=== PATIENT | female | born 1955 | race Caucasian/White ===

== ENCOUNTER 2016-06-04 11:13 | Emergency (ER) | payer SELFPAY ==
[2016-06-04 11:37] VITALS: BP 163/61; PULSE 79; RESP 16; TEMP 97.9; O2SAT 96
--- NOTE | 2016-06-04 12:36 | UCPHY ---
H & P Time Seen by Provider: 06/04/16 11:35 Patient Type: Established HPI/ROS: 60-year-old female presents complaining of swelling of her hands secondary to her rheumatoid arthritis, a flare. She is visiting from the . She is not currently on prednisone. She denies fevers or chills. Review of systems As per HPI General no fever no chills no weakness HEENT no eye pain no eye discharge. No eye redness, no sore throat Respiratory no cough, no shortness of breath Cardiac no chest pain, no peripheral edema GI no abdominal pain, no diarrhea, no constipation, no nausea, no vomiting no flank pain, no hematuria, no dysuria Musculoskeletal no myalgias, positive joint pain Heme no easy bruising, no easy bleeding Endo no polyuria, no polydipsia Skin no rashes, no pruritus Neuro no syncope, no dizziness, no headaches Psych is no suicidal ideation, no homicidal ideation Past Medical/Surgical History: Rheumatoid arthritis Social History: Denies excessive alcohol or drug use Smoking Status: Never smoked Physical Exam: 60-year-old female alert and oriented in no acute distress nontoxic appearance afebrile Alert and oriented in no acute distress nontoxic appearance, afebrile Atraumatic normocephalic Neck no JVD Lungs clear to auscultation, no respiratory distress Heart regular rate and rhythm Extremities no cyanosis clubbing edema Hands diffuse Ortho rheumatoid arthritic changes with swelling and mild redness at DIP PIP MCP Good range of motion despite swelling, no drainage no lymphangitic streaks Good capillary refill Constitutional: Initial Vital Signs Temperature (C) 36.6 C 06/04/16 11:34 Heart Rate 79 06/04/16 11:34 Respiratory Rate 16 06/04/16 11:34 Blood Pressure 163/61 H 06/04/16 11:34 O2 Sat (%) 96 06/04/16 11:34 O2 Delivery Mode Room Air Allergies/Adverse Reactions: No Known Allergies Allergy (Unverified 06/04/16 11:32) Home Medications: Medication Instructions Recorded Diclofenac Sodium 06/04/16 Enbrel 06/04/16 Estrogens, Conjugated 06/04/16 Leflunomide 06/04/16 methylPREDNISolone [Medrol Dose 1 each PO AD #1 ea 06/04/16 Loco] Medical Decision Making ED Course/Re-evaluation: Patient seen and evaluated for swelling of hands at her joints, in areas where her rheumatoid arthritis normally flares. Differential diagnosis Polyarthralgia likely secondary to rheumatoid arthritis, osteoarthritis Impression Rheumatoid arthritis flare Plan Medrol Dosepak Patient advised to increase her fluids Patient also advised to return if not seeing a marked improvement after starting the steroids Departure - Departure Disposition: Home, Routine, Self-Care Clinical Impression: Rheumatoid arthritis flare Condition: Good Instructions: Rheumatoid Arthritis (ED) Referrals: UNKNOWN,UNKNOWN [Other] - As per Instructions Prescriptions: methylPREDNISolone [Medrol Dose Loco] 1 each PO AD #1 ea - PQRS PQRS Measurement: na
== END 2016-06-04 12:40 | disposition home or self-care (01) ==
LOC: CED 11:13
DX: M06.9 Rheumatoid arthritis, unspecified (principal)
CPT/HCPCS: 99202-PO; G0463-PO